=== PATIENT | male | born 1970 | race African-American/Black ===

== ENCOUNTER 2017-12-05 09:26 | Outpatient (CLI) | payer SELFPAY ==
[~2017-12-05] VITALS: Ht 160 cm; Wt 79.1 kg
--- NOTE | ~2017-12-05 | HEMODYNAMI ---
PATIENT:MICHAEL RICE MEDICAL RECORD: [id number] : 66 LOCATION:[facility] ADMISSION DATE: 12/05/17 Generatedon:12/05/201714:51 Patient name: MICHAEL RICE Patient #: [id number] SSN: DO B: 1970 Date of study: 12/05/2017 Page: Of Hemodynamic Procedure Report Patient Data Patient Demographics Procedure consent was obtained First Name: MICHAEL Gender: Male Last Name: DWAYNE : 1970 Patient #: [id number] Age: 47 year(s) Race: Black Additional ID: [id number] Contact details [address]: [address] [place] [address] State: [place] City: [place] Zip code: [address] Past Medical History Allergies Allergen Reaction Date Comments Reported Other allergy 12/05/2017 Hydrocodone Admission Admission Data Admission Date: 12/05/2017 Admission Time: 9:26 Procedure Procedure Types Cath Procedure Diagnostic Procedure [facility] w/Coronaries Sedation Charges Moderate Sedation up to 15 minutes PCI Procedure Coronary Stent Coronary Stent Initial Procedure Description Procedure Date Procedure Date: 12/05/2017 Procedure Start Time: 14:19 Procedure End Time: 14:50 Procedure Staff Name Function Chuck Pappas MD Performing Physician Hallie Salas RN Nurse Katheryn Guerra RT Monitor Lucille Naranjo RT Scrub Procedure Data Cath Procedure Fluoroscopy Diagnostic fluoroscopy Total fluoroscopy Time: 4.4 time: 4.4 min min Diagnostic fluoroscopy Total fluoroscopy dose: 617 dose: 617 mGy mGy Contrast Material Contrast Material Type Amount (ml) Isovue 300 99 Entry Location Entry Primary Successful Side Size Upsize Upsize Entry Closure Succes sful Closure Location (Fr) 1 (Fr) 2 (Fr) Remarks Device Remarks Femoral Right 5 Fr 6 Fr Vascade artery Short Closure System Estimated blood loss: 10 ml Diagnostic catheters Device Type Used For End Catheter Placement MULTIPACK Pigtail 5 Fr LV Angiography catheter MULTIPACK JL 4.0 5Fr Left Coronary catheter Angiography MULTIPACK 3DRC 5Fr Right Coronary catheter Angiography Procedure Complications Contrast Reaction Procedure Medications Medication Administration Route Dosage Oxygen NC 2 l/min Lidocaine 2% added to field 20 Heparin Flush Bag added to field 2 bags (1000units/500ml NS) 0.9% NaCl I.V. 100 ml/hr Versed I.V. 2 mg Fentanyl I.V. 100 mcg Versed I.V. 1 mg Fentanyl I.V. 50 mcg Solumedrol I.V. 125 mg Lopressor I.V. 5 mg Heparin Bolus I.V. 4000 units Benadryl I.V. 50 mg Hemodynamics Rest Pre Cath Intra NCS Post Cath Vital Signs Time Heart Resp SPO2 etCO2 NIBP (mmHg) Rhythm Pain Sedation Rate (ipm) (%) (mmHg) Status Level (bpm) 14:12:43 85 13 99 41.2 123/65(93) NSR 0 (11) 10(A) , No pain 14:17:26 82 12 99 39.7 112/70(90) NSR 0 (11) 10(A) , No pain 14:22:06 74 12 100 26.2 124/65(100) NSR 0 (11) 10(A) , No pain 14:28:09 120 22 98 31.5 156/108(135) NSR 0 (11) 9(A) , No pain 14:32:48 91 17 100 24.7 125/73(103) NSR 0 (11) 9(A) , No pain 14:37:30 90 14 100 24.7 106/56(77) NSR 0 (11) 9(A) , No pain 14:42:07 94 17 100 43.5 116/69(88) NSR 0 (11) 9(A) , No pain 14:46:48 89 18 100 40.4 121/58(87) NSR 0 (11) 10(A) , No pain Medications Time Medication Route Dose Verified Delivered Reason Notes Ef fectiveness by by 14:12:00 Oxygen NC 2 [place] Sterling used for l/min Elyse Salas RN procedure 14:12:08 Lidocaine 2% added 20ml [place] for local to vial Elyse Pappas MD anesthetic field 14:12:16 Heparin Flush added 2 [place] used for Bag to bags Elyse Pappas MD procedure (1000units/500ml field NS) 14:12:25 0.9% NaCl I.V. 100 Chuck Sterling Per ml/hr Elyse Salas RN physician 14:17:17 Versed I.V. 2 mg Chuck Sterling for Elyse Salas RN sedation 14:17:23 Fentanyl I.V. 100 Chuck Sterling for mcg Elyse Salas RN sedation 14:21:25 Versed I.V. 1 mg Chuck Sterling for Elyse Salas RN sedation 14:21:29 Fentanyl I.V. 50 Chuck Sterling for mcg Elyse Salas RN sedation 14:26:25 Solumedrol I.V. 125 Chuck Sterling For mg Elyse Salas RN allergic reaction 14:28:23 Benadryl I.V. 50 mg Chuck Sterling For Elyse Salas RN allergic reaction 14:29:05 Lopressor I.V. 5 mg Chuck Sterling Per Elyse Salas RN physician 14:31:54 Heparin Bolus I.V. 4000 Chuck Sterling verified units Elyse Salas RN with dr pappas Procedure Log Time Note 13:52:57 Hallie Salas RN sent for patient. Start room use. 13:52:58 Time tracking: Regular hours (M-F 7:00 - 5:00) 13:53:02 Plan of Care:Hemodynamics will remain stable., Cardiac rhythm will remain stable., Comfort level will be maintained., Respiratory function will remain adequate., Patient/ family verbilizes understanding of procedure., Procedure tolerated without complication., Recovers from procedure without complications.. 14:02:55 Patient received from ED to CCL 1 Alert and oriented. Tansferred to table in Supine position. 14:02:56 Warm blankets applied, and cabrera hugger turned on for patient comfort. 14:02:57 Correct patient and procedure confirmed by team. 14:02:58 Signed procedure consent form obtained from patient. 14:02:58 ECG and BP/O2 sat monitors applied to patient. 14:02:59 Full Disclosure recording started 14:11:49 Vital chart was started 14:12:00 Oxygen 2 l/min NC was administered by Hallie Salas RN; used for procedure; 14:12:08 Lidocaine 2% 20ml vial added to field was administered by Chuck Pappas MD; for local anesthetic; 14:12:16 Heparin Flush Bag (1000units/500ml NS) 2 bags added to field was administered by Chuck Pappas MD; used for procedure; 14:12:25 0.9% NaCl 100 ml/hr I.V. was administered by Hallie Salas RN; Per physician; 14:13:16 Rhythm: sinus rhythm 14:13:24 H&P Date Dictated: 12/05/2017 Within 30 days and on chart.. 14:13:25 Pre-procedure instructions explained to patient. 14:13:25 Pre-op teaching completed and patient verbalized understanding. 14:13:29 Family in waiting room. 14:13:31 Patient NPO since Midnight. 14:16:06 Patient allergic to Other allergyHydrocodone 14:16:08 Is the patient allergic to Iodine/contrast media? No. 14:16:10 Is patient on blood thinner?Yes 14:16:14 ACC The patient was administered the following blood thiners within the last 24 hours: ACCBrilinta 14:16:15 Patient diabetic? No. 14:16:20 Previous problem with sedation/anesthesia? No ? 14:16:21 Snore? Yes 14:16:22 Sleep apnea? No 14:16:23 Deviated septum? No 14:16:24 Opens mouth fully? Yes 14:16:25 Sticks out tongue? Yes 14:16:26 Airway obstruction? No ? 14:16:29 Dentures? No ? 14:16:32 Pre procedure: right dorsailis pedis pulse 2+ Normal; easily identifiable; not easily obliterated 14:16:46 Patient pain scale 2/10 ?. 14:16:50 IV patent on arrival in right hand with 0.9% NaCl at [facility]. 14:16:52 Lab results completed and on chart. 14:16:54 Right groin area was prepped with chlora-prep and draped in sterile fashion 14:16:55 Alarms reviewed by R. N. 14:16:55 Sharps counted by scrub and verified by R.N. 14:16:56 Final Timeout: patient, procedure, and site verified with staff and physician. All members of the team are in agreement. 14:16:58 Right groin site verified by team. 14:17:00 Physical assessment completed. ASA score P 2 - A patient with mild systemic disease as per Chuck Pappas MD. 14:17:02 Sedation plan: IV Moderate Sedation Medication:Versed, Fentanyl 14:17:17 Versed 2 mg I.V. was administered by Hallie Salas RN; for sedation; 14:17:23 Fentanyl 100 mcg I.V. was administered by Hallie Salas RN; for sedation; 14:19:29 Use device set Femoral Dx 14:19:30 ACIST Syringe (56028) opened to sterile field. 14:19:31 Bag Decanter (2002S) opened to sterile field. 14:19:31 Medline Cath Pack ([id number]) opened to sterile field. 14:19:32 DIAGNOSTIC WIRE .035 260cm J wire (228487) opened to sterile field. 14:19:33 ACIST Hand Control (57761) opened to sterile field. 14:19:33 ACIST Manifold (84777) opened to sterile field. 14:19:33 DIAGNOSTIC Multipack 5Fr catheter set (IG6507) opened to sterile field. 14:19:34 Tegaderm 4 x 4 (1626W) opened to sterile field. 14:19:35 SHEATH Prelude 5Fr 0.035 (BVW-5F-96-035) opened to sterile field. 14:19:41 Procedure started. 14:19:48 Local anesthetic to right femoral artery with Lidocaine 2% by Chuck Pappas MD.INITIAL ACCESS ONLY 14:20:00 A 5 Fr sheath was inserted into the Right Femoral artery 14:20:13 A MULTIPACK Pigtail 5 Fr catheter was advanced over the wire and used for LV Angiography. 14:20:45 LV gram done using HANSON 14:20:48 Injector settings: Ml/sec: 10, Volume: 20, 14:20:55 EF : 60 % 14:20:56 Catheter removed. 14:21:20 A MULTIPACK JL 4.0 5Fr catheter was advanced over the wire and used for Left Coronary Angiography. 14:21:25 Versed 1 mg I.V. was administered by Hallie Salas RN; for sedation; 14:21:29 Fentanyl 50 mcg I.V. was administered by Hallie Salas RN; for sedation; 14:23:18 Catheter removed. 14:23:24 A MULTIPACK 3DRC 5Fr catheter was advanced over the wire and used for Right Coronary Angiography. 14:23:31 Use device set [facility] PCI 14:23:43 INFLATOR Merit BasixCompak ([id number]) opened to sterile field. 14:23:45 CHOICE PT Extra Support 182cm wire ([id number]) opened to sterile field. 14:23:47 SHEATH Prelude 6Fr 0.035 (FCP-3G-55-035) opened to sterile field. 14:24:42 Sheath upsized to a 6 Fr Short. 14:26:25 Solumedrol 125 mg I.V. was administered by Hallie Salas RN; For allergic reaction; 14:28:23 Benadryl 50 mg I.V. was administered by Hallie Salas RN; For allergic reaction; 14:29:05 Lopressor 5 mg I.V. was administered by Hallie Salas RN; Per physician; 14:31:54 Heparin Bolus 4000 units I.V. was administered by Hallie Salas RN; ; verified with dr pappas 14:32:50 6 Fr AR 2.0 guide catheter was inserted over the wire 14:34:03 Pt with stridor noted, medications for possible iodine allergy given, will monitor closely 14:34:09 Guide Catheter removed. unable to cannulate vessel. 14:34:41 6 Fr AR 1.0 guide catheter was inserted over the wire 14:34:56 GUIDE 6FR AR 2.0 catheter (VQ4AS17) opened to sterile field. 14:34:57 GUIDE 6FR AR 1.0 catheter ([id number]) opened to sterile field. 14:35:34 Guide Catheter removed. unable to cannulate vessel. 14:36:11 GUIDE 6FR 3DRC catheter ([id number]) opened to sterile field. 14:36:15 6 Fr 3DRC guide catheter was inserted over the wire 14:36:20 Guide Catheter removed. pressure damping. 14:36:39 6 Fr 3DRC SH guide catheter was inserted over the wire 14:37:54 CHOICE PT ES wire advanced. 14:38:26 Place stent Inflation Number: 1 A FELICITA RX 3.5 x 30 stent ([id number]) was prepped and advanced across the Prox RCA. The stent was deployed at 21 ANNE for 0:10 (min:sec). 14:38:47 Stent catheter was removed intact over wire. 14:38:54 Wire removed. 14:39:01 Guide catheter removed. 14:39:24 Sheath removed intact; hemostasis achieved with Vascade Closure System to the Right Femoral artery. 14:39:27 Procedure ended.(Physican Out) 14:40:10 Fluoroscopy time 04.40 minutes. 14:40:15 Fluoroscopy dose: 617 mGy 14:40:15 Flurop Dose total: 617 14:40:21 Contrast amount:Isovue 300 99ml. 14:40:23 Sharps counted by scrub and verified by R.N. 14:40:24 Insertion/operative site no bleeding no hematoma. 14:40:27 Post-op/insertion site Right Femoral artery dressed using a 4 x 4 and Tegaderm. 14:40:30 Post right femoral artery:stable, clean and dry 14:40:31 Post Procedure Pulses reassessed and unchanged 14:40:39 Post-procedure physical assessment completed. ASA score P 2 - A patient with mild systemic disease as per Chuck Pappas MD. 14:40:42 Post procedure rhythm: unchanged. 14:40:45 Estimated blood loss: 10 ml 14:40:47 Post procedure instruction explained to patient.Patient verbalizes understanding. 14:40:47 Patient needs reinforcement of post procedure teaching. 14:40:53 Procedure type changed to Cath procedure, Diagnostic procedure, LHC, LHC w/Coronaries, Sedation Charges, Moderate Sedation up to 15 minutes, PCI procedure, Coronary Stent, Coronary Stent Initial 14:41:57 Procedure Complication : Contrast Reaction 14:42:40 VASCADE 6/7 Fr ([id number]) opened to sterile field. 14:43:55 GUIDE 6FR 3DRC SH catheter ([id number]) opened to sterile field. 14:44:46 See physician's report for complete and final results. 14:44:47 Procedure and supply charges have been captured, reviewed, submitted and are correct. 14:50:24 IODINE ALLERGY ADDED TO PATIENTS'S ALLERGIES IN [employer]. 14:50:30 Vital chart was stopped 14:50:32 Report given to Pre/Post Procedure Room. 14:50:36 Patient transfered to Pre/Post Procedure Room with Stretcher. 14:50:46 Procedure ended. 14:50:46 Full Disclosure recording stopped 14:50:50 End room use (Document Last) Intervention Summary Intervention Notes Time ActionType Lesion and Equipment Used Action# Pressure Duration Attributes 14:38:[address] stent Prox RCA FELICITA RX 3.5 x 1 21 00:10 30 stent ([id number]) Device Usage Item Name Manufacture Quantity Catalog Number Hospital Part Current Minimal Lot# / Charge Number Stock Stock Serial# Code ACIST Syringe Acist 1 08398 319744 837882 [id number] 20 (16852) Medical Systems Inc Bag Decanter Microtek 1 2001S 266951 60167 029037 5 () Medical Inc. Medline Cath Cardinal 1 [id number] 489451 97493 968434 5 Pack Health ([id number]) DIAGNOSTIC WIRE St [place]at 1 539432 532836 208257 719643 30 .035 260cm J wire (167497) ACIST Hand Acist 1 68472 412082 543680 488412 5 Control (06910) Medical Systems Inc ACIST Manifold Acist 1 67166 141370 899633 170750 5 (81629) Medical Systems BPeSA DIAGNOSTIC Cardinal 1 ZL6458 575053 53761 401731 30 Multipack 5Fr Health catheter set (SC6139) Tegaderm 4 x 4 3M 1 1626W 243885 303001 975175 5 (1626W) SHEATH Prelude Merit 1 KSR-7O-74-035 963219 573197 574399 5 5Fr 0.035 Medical (DEK-8P-59-035) MULTIPACK Cardinal 1 900774 5 Pigtail 5 Fr Health catheter MULTIPACK JL Cardinal 1 330686 5 4.0 5Fr Health catheter MULTIPACK 3DRC Cardinal 1 389287 5 5Fr catheter Health INFLATOR Merit Merit 1 OJ1592 525803 526408 287030 15 [email or web address] (BX0199) CHOICE PT Extra [place] 1 [id number] 918024 698211 141415 5 Support 182cm Scientific wire ([id number]) SHEATH Prelude Merit 1 PNC-2Q-77-35 899931 3492793 846640 5 6Fr 0.035 Medical (YNV-0E-03-035) GUIDE 6FR AR Medtronic 1 [id number] 303265 63282 842434 1 2.0 catheter (DE4BI24) GUIDE 6FR AR Medtronic 1 [id number] 791705 45771 880835 1 1.0 catheter (QF1LQ80) GUIDE 6FR 3DRC Medtronic 1 [id number] 759507 525117 245443 1 catheter (OD80DMY) FELICITA RX 3.5 x Medtronic 1 [id number] 530860 9236792 505122 5 [id number] 30 stent ([id number]) VASCADE 6/7 Fr Cardiva 1 [id number] 759190 970391 587983 5 ([id number]) Medical, Inc. GUIDE 6FR 3DRC Medtronic 1 [id number] 142462 004577 572491 1 catheter ([id number]) Signature Audit [place] Stage Time Signature Unsigned Intra-Procedure 12/05/2017 Katheryn 2:51:01 PM Counts RT(R) Signatures Monitor : Katheryn Signature : Counts RT Date : Time : [place] [id number] [place] [address]
--- NOTE | ~2017-12-05 | OP ---
PATIENT NAME: MICHAEL RICE MEDICAL RECORD: [id number] :66 LOCATION:[facility] ADMISSION DATE: SURGEON: SUSAN ZEPEDA MD DATE OF OPERATION: 12/05/2017 PROCEDURES: 1. PTCA stent RCA. 2. Left heart catheterization. 3. Selective coronary angiography. 4. Left ventriculogram. INDICATION: Angina and coronary artery disease. PROCEDURE IN DETAIL: After informed consent was obtained and after a detailed description of risks, benefits as well as alternative therapies, the patient elected to proceed with angiogram and angioplasty. The right femoral area was prepped and draped in normal sterile fashion. Right common femoral artery was cannulated via modified Seldinger technique with placement of 6-Peruvian sheath. All catheters exchanged through this sheath. FINDINGS: Left ventriculogram was performed in standard 30-degree HANSON view, reveals good cardiac wall motion throughout all segments. Overall ejection fraction estimated 60%. SELECTIVE CORONARY ANGIOGRAPHY: 1. Left main is with no significant angiographic disease. 2. Left anterior descending has previously placed stent. This is widely patent. 3. Left circumflex has moderate irregularities, but no flow-limiting stenosis. 4. Right coronary artery has 80% to 90% stenosis in the mid distal vessel. PTCA STENT OF THE RIGHT CORONARY ARTERY: The stent used was 3.5 x 30 mm Leo. Result was 0% residual stenosis. OVERALL IMPRESSION: Successful percutaneous transluminal coronary angioplasty stent of the right coronary artery going from 80% to 90% initial stenosis to 0% residual. TRANSINT:[id number] Voice Confirmation ID: [id number] DOCUMENT ID: [id number] SUSAN ZEPEDA MD at 1741 CC: [id number] DICTATION DATE: 12/05/17 1447 SENIOR ACCOUNTANT: 12/05/17 1504 DEP CLI 12/05/17 [place] [address]
--- NOTE | ~2017-12-05 | CN ---
PATIENT NAME:MICHAEL MULLEN MEDICAL RECORD: [id number] : 66 LOCATION:[facility] ADMIT DATE: ACCOUNT: [id number] CONSULTING PHYSICIAN: SUSAN ZEPEDA MD REFERRING PHYSICIAN: SUSAN ZEPEDA MD DATE OF CONSULTATION: 12/05/2017 DIAGNOSES: 1. Angina. 2. Coronary artery disease. 3. Recent PTCA and stent to LAD with concomitant disease RCA. 4. Hypertension. 5. Hyperlipidemia. HISTORY OF PRESENT ILLNESS: Mr. Mullen presents with 45 minutes of chest pain, somewhat similar to that when he had his myocardial infarction. This was the 20th of last month. He was at [facility] and underwent PTCA and stent there. PHYSICAL EXAMINATION: GENERAL APPEARANCE: Well-nourished, well-developed, appears stated age. Level of distress, comfortable. PSYCHIATRIC: Mental status, alert, normal affect. Orientation, oriented to time, place and person. EYES: Lids and conjunctiva, noninjected. No discharge, no pallor. ENT: Lips, teeth, gums, normal dentition. Oropharynx, no cyanosis, no pallor. NECK: Carotid arteries, bilateral normal upstroke, no bruits, no thrills. JUGULAR VEINS: No jugular venous pressure or distention. CERVICAL LYMPH NODES: Nontender, nonenlarged. THYROID: Not enlarged. Nontender. No nodules. LUNGS: Respiratory effort, unlabored. CHEST: Normal curvature. No thoracic deformity. No chest wall tenderness. Percussion, resonant. Auscultation, clear. No wheezes, no rales, no rhonchi. CARDIOVASCULAR: Precordial exam, nondisplaced. No heaves or pericardial thrills. Rate and rhythm, regular. Heart sounds, normal S1, normal S2. No S3, no gallop, no rub. Systolic murmur, not heard. Diastolic murmur, not heard. EXTREMITIES: No cyanosis, no edema. Peripheral pulses, full and equal in all extremities, except as noted. No bruits appreciated. ABDOMEN: Soft, nondistended. Normal aorta. No bruit. Nontender. No masses. Liver, nontender, no hepatomegaly. Spleen, nontender, no splenomegaly. MUSCULOSKELETAL: No joint tenderness. No joint swelling. No erythema. NEUROLOGICAL: Normal gait, normal strength, normal tone. SKIN: Warm and dry. REVIEW OF SYSTEMS: The patient reports easy bruising but reports no swollen glands. The patient reports no fever, no night sweats, no significant weight gain, no significant weight loss. No significant exercise tolerance. The patient reports no dry eyes, no irritation, no vision change. Patient reports no difficulty hearing and no ear pain. Patient reports no frequent nose bleeds or nose and sinus problems. Patient reports on arm pain on exertion. No shortness of breath while lying down. No history of heart murmur. Patient reports no cough, no wheezing or coughing up blood. Patient reports no abdominal pain, no vomiting. Normal appetite. No diarrhea and not vomiting blood. No nausea and no constipation. Patient reports no incontinence. No difficulty urinating. No hematuria. No increased frequency. Patient reports CONSULT REPORT [id number] MICHAEL MULLEN no muscle aches. No weakness, no arthralgias, no back pain. No swelling of the extremities. Patient reports no abnormal mole, no jaundice, no rashes. Reports no loss of consciousness. No weakness and no numbness. No seizures, dizziness, or headaches. The patient reports no depression, no sleep disturbance, feeling safe in a relationship and no alcohol abuse. Patient reports on fatigue. Reports no runny nose or sinus pressure. No itching, no hives, and no frequent sneezing. OVERALL IMPRESSION: Recurrent anginal symptomatology. We will proceed with coronary angiography. Further care depends upon the findings of the angiography. TRANSINT:[id number] Voice Confirmation ID: [id number] DOCUMENT ID: [id number] SUSAN ZEPEDA MD at 1742 CC: [id number] DICTATION DATE: 12/05/17 1117 METAL LATHER: 12/05/17 1134 DEP CLI 12/05/17 [place] [id number] [place] [id number]
[2017-12-05 09:28] VITALS: Ht 160 cm; Wt 79.1 kg
[2017-12-05] MEDS ORDERED: HYDROCHLOROTHIA25 MG PO (09:32)
[2017-12-05] MEDS ORDERED: BRILINTA90 MG PO (09:33)
[2017-12-05] MEDS ORDERED: LIPITOR40 MG PO (09:33)
[2017-12-05] MEDS ORDERED: BAYER CHEWABLE81 MG PO (09:34)
[2017-12-05] MEDS ORDERED: TOPROL XL50 MG PO (09:34)
[2017-12-05] MEDS ORDERED: PRINIVIL10 MG PO (09:34)
[2017-12-05 10:22] LABS: BASOPHILS 0.1 % (0-2); EOSINOPHILS 3.8 % (0-7); HEMATOCRIT 36.4 % (42.0-54.0); HEMOGLOBIN 12.4 g/dL (13.5-17.5); IMMATURE GRANULOCYTES 0.1 % (0-5); MCH 29.4 pg (26.0-34.0); MCHC 34.1 g/dL (31.0-37.0); MCV 86.3 fL (80.0-100.0); MEAN PLATELET VOLUME 9.4 fL (7.4-10.4); MONOCYTES 6.9 % (2-11); NEUTROPHILS 60.1 % (40-80); PLATELET COUNT 262 10x3/uL (130-400); RBC 4.22 10x6/uL (4.20-6.10); RDW 12.4 % (11.5-14.5); WBC 9.5 10x3/uL (4.8-10.8)
[2017-12-05 10:41] LABS: ALKALINE PHOSPHATASE 108 U/L (46-116); ALT (SGPT) 38 U/L (10-68); BILIRUBIN - TOTAL 0.51 mg/dL (0.2-1.3); CALC OSMOLALITY 284 mosm/kg (275-300); CALCIUM 9.2 mg/dL (8.5-10.1); CARBON DIOXIDE 29.2 mmol/L (21.0-32.0); CHLORIDE - SERUM 100 mmol/L (98-107); CREATININE - SERUM 1.8 mg/dL (0.6-1.3); GLUCOSE 160 mg/dL (74-106); POTASSIUM - SERUM 3.4 mmol/L (3.5-5.1); PROTEIN - SERUM 8.5 g/dL (6.4-8.2); SODIUM 138 mmol/L (136-145); UREA NITROGEN 29 mg/dL (7-18); eGFR NON AFRICAN AMERICAN 43 mL/min (90-120)
[2017-12-05 10:54] LABS: CKMB 0.7 U/L (0.0-3.6); CREATINE KINASE 182 UL (21-232); PRO BNP 19 pg/mL (0-125); TROPONIN-I < 0.017 ng/mL (0.000-0.060)
[2017-12-05 13:58] VITALS: BP 138/76
== END 2017-12-05 19:30 ==
LOC: D.CATH 09:26 → D.ER 09:26 → D.CATH 19:30
PROVIDERS: Family Medicine
DX: I25.119 Atherosclerotic heart disease of native coronary artery with unspecified angina pectoris (principal); I10 Essential (primary) hypertension; E78.5 Hyperlipidemia, unspecified